=== PATIENT | male | born 1950 | race Caucasian/White ===

== ENCOUNTER 2020-11-13 09:57 | Emergency (ER) | payer OTHER ==
[~2020-11-13] VITALS: Ht 190.5 cm; Wt 106.1 kg
[~2020-11-13 09:57] MED LIST: LIPITOR PO; LISINOPRIL PO
--- NOTE | 2020-11-13 10:07 | NUR ---
PT AMBULATORY TO ROOM FROM TRIAGE, CHANGED INTO GOWN, MONITORS IN PLACE. PT C/O BRAIN FOG, FEVER, VILLASEÑOR, COUGH FOR SEVEN DAYS. PT STATES FEVER HIGH 102, INSOMNIA AND PT HAS NOT BEEN ABLE TO SLEEP THE LAST 3 NIGHTS. PT DENIES SOB OR CP
--- NOTE | 2020-11-13 10:14 | NUR ---
pa at bs for eval
--- NOTE | 2020-11-13 10:33 | NUR ---
xray at bs
[2020-11-13 10:49] LABS: BASOPHILS % (AUTO) 0 % (0-1); EOSINOPHILS % (AUTO) 0 % (1-7); LYMPHOCYTES % (AUTO) 11 % (22-44); MEAN CORPUSCULAR HEMOGLOBIN 28.7 pg (27.5-34.5); MEAN CORPUSCULAR HGB CONC 34.7 g/dL (33.2-36.2); MEAN PLATELET VOLUME 9.5 fL (7.4-10.4); MONOCYTES % (AUTO) 11 % (2-9); NEUTROPHILS % (AUTO) 77 % (42-75); PLATELET COUNT 118 x10^3/uL (130-400); RED CELL DISTRIBUTION WIDTH 14.9 % (9.4-14.8)
--- NOTE | 2020-11-13 11:00 | NUR ---
Patient is resting comfortably in bed. Bed in lowest, rails engaged, call light on lap. Vital Signs within normal limits. WCTM.
[2020-11-13 11:01] LABS: ALBUMIN 2.9 g/dL (3.4-5.0); ANION GAP 4 mmol/L (5-15); CALCIUM 8.3 mg/dL (8.5-10.1); CHLORIDE 100 mmol/L (98-107)
[2020-11-13 11:04] LABS: ALANINE AMINOTRANSFERASE 29 U/L (12-78); ALKALINE PHOSPHATASE 61 U/L (45-117); CREATININE 0.89 mg/dL (0.7-1.3); TOTAL PROTEIN 6.6 g/dL (6.4-8.2)
[2020-11-13 11:18] VITALS: BP 118/67
[2020-11-13] MEDS ORDERED: ATOR20TA37 PO (11:19)
[2020-11-13 11:27] LABS: MICROSCOPIC INDICATED
--- NOTE | 2020-11-13 12:18 | NUR ---
Patient given discharge instructions and RX, they have confirmed that they understand the instructions. Patient ambulatory with steady gait.
== END 2020-11-13 12:19 | disposition home or self-care (01) ==
LOC: ED 12:15
DX: U07.1 COVID-19 (principal); J06.9 Acute upper respiratory infection, unspecified; E87.1 Hypo-osmolality and hyponatremia
CPT/HCPCS: 36415; 71045; 80053; 81001; 85025; 99284; U0003; U0005